=== PATIENT | female | born 1955 | race African-American/Black ===

== ENCOUNTER 2020-05-24 10:35 | Inpatient (IN) | payer MEDICARE, MEDICAID ==
[~2020-05-24] VITALS: Ht 162.6 cm; Wt 107.5 kg
[~2020-05-24 10:35] MED LIST: UNK MEDS
[2020-05-24 12:17] LABS: BASOPHILS % 1.3 % (0.0-2.0); EOSINOPHILS % 0.8 % (0.0-5.0); HEMATOCRIT. 44.9 % (36.0-48.0); HEMOGLOBIN. 14.1 g/dL (12.0-16.0); LYMPHOCYTES % 16.2 % (20.0-50.0); MEAN CORPUSCULAR HEMOGLOBIN 25.4 pg (28.0-32.0); MEAN CORPUSCULAR VOLUME 81.1 fL (81.0-99.0); MEAN PLATELET VOLUME 9.1 fl (7.4-10.4); MONOCYTES % 9.3 % (2.0-8.0); NEUTROPHILS % 72.4 % (40.0-76.0); PLATELET 239 x1000/uL (130-400); RED BLOOD CELL COUNT 5.54 mill/uL (4.2-5.4); RED CELL DISTRIBUTION WIDTH 15.8 % (11.6-14.6)
[2020-05-24 12:32] LABS: CHLORIDE 104 mEq/L (98-107)
[2020-05-24] MEDS ORDERED: GLUCAGON,HUMAN RECOMBINANT 1MG/VIAL IV ONE (13:15)
[2020-05-24 16:15] VITALS: BP 124/90
[2020-05-24 17:05] VITALS: BP 124/90
[2020-05-24] MEDS ORDERED: FLUT1BLS12 IH (17:17)
[2020-05-24] MEDS ORDERED: ERTU15TA PO (17:17)
[2020-05-24] MEDS ORDERED: METF-874 PO (17:22)
[2020-05-24] MEDS ORDERED: AMLO-78 MT (17:22)
[2020-05-24] MEDS ORDERED: TRIA1TAB92 MT (17:22)
[2020-05-24] MEDS ORDERED: IPRA4AER INH (17:22)
[2020-05-24] MEDS ORDERED: ALOG25TA MT (17:22)
[2020-05-24] MEDS ORDERED: ATOR40TA70 PO (17:22)
[2020-05-24] MEDS ORDERED: ASPI-1160 PO (17:22)
[2020-05-24] MEDS ORDERED: CALC-889 PO (17:22)
[2020-05-24] MEDS ORDERED: NAPR500T7 PO (17:22)
[2020-05-24] MEDS ORDERED: ERGO500013 PO (17:22)
[2020-05-24] MEDS ORDERED: MULT-1146 MT (17:22)
[2020-05-24] MEDS ORDERED: OMEP40CA12 PO (17:22)
[2020-05-24] MEDS ORDERED: DEXTROSE 50% WATER 50ML SYRINGE IV PRN (17:45)
[2020-05-24] MEDS ORDERED: *PATIENT'S OWN MEDICATION STORAGE XX SCH (17:45)
[2020-05-24] MEDS ORDERED: ACETAMINOPHEN 325MG TABLET PO PRN (17:45)
[2020-05-24 18:04] LABS: CLARITY URINE CLEAR (CLEAR); COLOR URINE YELLOW (YELLOW); KETONES URINE TRACE (NEGATIVE); LEUKOCYTE ESTERASE URINE NEGATIVE (NEGATIVE); NITRITE URINE NEGATIVE (NEGATIVE); OCCULT BLOOD URINE NEGATIVE (NEGATIVE); PROTEIN URINE NEGATIVE (NEGATIVE); SPECIFIC GRAVITY URINE 1.026 (1.005-1.030); UROBILINOGEN URINE 0.2 E.U./dL (0.2-1.0)
[2020-05-24] MEDS ORDERED: HYDROCODONE/ACETAMINOPHEN 5/325MG TABLET PO PRN (18:15)
[2020-05-24 18:20] LABS: *AMPHETAMINES SCREEN URINE NEGATIVE (NEGATIVE); *BARBITURATES SCREEN URINE NEGATIVE (NEGATIVE); *BENZODIAZEPINES SCREEN URINE NEGATIVE (NEGATIVE); *COCAINE SCREEN URINE NEGATIVE (NEGATIVE); METHADONE URINE SCREEN NEGATIVE (NEGATIVE); OPIATES URINE SCREEN NEGATIVE (NEGATIVE)
[2020-05-24 18:21] LABS: CANNABINOID URINE SCREEN NEGATIVE (NEGATIVE); PHENCYCLIDINE URINE SCREEN NEGATIVE (NEGATIVE)
[2020-05-24] MEDS: ACYCLOVIR 400 MG TABLET PO SCH (18:40)
[2020-05-24] MEDS: TRAMADOL 50MG TABLET PO PRN (18:40)
[2020-05-24 20:00] VITALS: BP 159/78
[2020-05-24] MEDS: BLOOD SUGAR DIAGNOSTIC STRIP TEST SCH (20:52)
[2020-05-24] MEDS: FAMOTIDINE 20MG TABLET PO SCH (20:52)
[2020-05-24] MEDS: INSULIN LISPRO 100 UNITS/ML SUBCUT SCH (20:54)
[2020-05-24] MEDS ORDERED: INSULIN LISPRO 100 UNITS/ML SUBCUT SCH (21:00)
[2020-05-24 21:20] LABS: LDL CHOLESTEROL 89 mg/dL (5-100)
[2020-05-24 21:21] LABS: HDL CHOLESTEROL 47 mg/dL (40-59)
[2020-05-24] MEDS: ADVAIR PO SCH (23:30)
[2020-05-25] MEDS: TRAMADOL 50MG TABLET PO PRN ×2 (02:05→16:10)
[2020-05-25] MEDS: BLOOD SUGAR DIAGNOSTIC STRIP TEST SCH ×4 (05:51→21:08)
[2020-05-25] MEDS: INSULIN LISPRO 100 UNITS/ML SUBCUT SCH ×4 (05:51→21:18)
[2020-05-25] MEDS: METFORMIN HCL 500MG TABLET PO SCH ×2 (05:52→18:01)
[2020-05-25 08:00] VITALS: BP 157/79
[2020-05-25] MEDS: ADVAIR PO SCH ×2 (10:26→18:01)
[2020-05-25] MEDS: ACYCLOVIR 400 MG TABLET PO SCH ×3 (10:27→18:01)
[2020-05-25 12:00] VITALS: BP 148/72
[2020-05-25] MEDS ORDERED: LACTULOSE 20G/30ML UDC PO NR (12:45)
[2020-05-25] MEDS: ONDANSETRON HCL 4MG/2ML INJ IV PRN (14:11)
[2020-05-25 16:00] VITALS: BP 122/60
[2020-05-25] MEDS ORDERED: INSULIN GLARGINE UD 100 UNITS/ML SYR SUBCUT NR (16:15)
[2020-05-25] MEDS ORDERED: INSULIN GLARGINE UD 100 UNITS/ML SYR SUBCUT ONE (17:00)
[2020-05-25] MEDS: COMBIVENT RESPIMAT PO PRN (18:06)
[2020-05-25 20:00] VITALS: BP 142/86
[2020-05-25] MEDS: INSULIN GLARGINE UD 100 UNITS/ML SYR SUBCUT SCH (21:18)
[2020-05-25] MEDS: FAMOTIDINE 20MG TABLET PO SCH (21:20)
[2020-05-25] MEDS: ACYCLOVIR INJ 750 MG in DEXT 5% WATER 125 ML IV SCH (23:09)
[2020-05-26] VITALS: BP 138/73
[2020-05-26 04:00] VITALS: BP 107/60
[2020-05-26] MEDS: ONDANSETRON HCL 4MG/2ML INJ IV PRN (05:54)
[2020-05-26] MEDS: TRAMADOL 50MG TABLET PO PRN ×2 (05:54→20:42)
[2020-05-26] MEDS: ACYCLOVIR INJ 750 MG in DEXT 5% WATER 125 ML IV SCH ×3 (06:05→23:27)
[2020-05-26] MEDS: METFORMIN HCL 500MG TABLET PO SCH ×2 (06:17→17:02)
[2020-05-26] MEDS: INSULIN LISPRO 100 UNITS/ML SUBCUT SCH ×4 (06:19→20:20)
[2020-05-26] MEDS: BLOOD SUGAR DIAGNOSTIC STRIP TEST SCH ×4 (06:49→20:20)
[2020-05-26 08:00] VITALS: BP 135/79
[2020-05-26] MEDS ORDERED: [UNRECOGNIZED DRUG - OTHER] MT SCH (09:00)
[2020-05-26] MEDS ORDERED: DOCUSATE SODIUM 250MG CAPSULE PO SCH ×2 (09:00)
[2020-05-26] MEDS ORDERED: AMLODIPINE BESYLATE MT SCH (09:00)
[2020-05-26] MEDS ORDERED: BENAZEPRIL MT SCH (09:00)
[2020-05-26] MEDS: DOCUSATE SODIUM 250MG CAPSULE PO SCH ×2 (09:11→17:00)
[2020-05-26] MEDS: TRIAMTERENE/HYDROCHLOROTHIAZID 75/50MG TABLET PO SCH (09:12)
[2020-05-26] MEDS: BENAZEPRIL 10MG TABLET PO SCH (09:12)
[2020-05-26] MEDS: AMLODIPINE 5MG TABLET PO SCH (09:12)
[2020-05-26] MEDS: ADVAIR PO SCH ×2 (09:27→17:03)
[2020-05-26] MEDS: INSULIN GLARGINE UD 100 UNITS/ML SYR SUBCUT SCH ×2 (10:13→21:19)
[2020-05-26 12:00] VITALS: BP 128/79
[2020-05-26] MEDS: METOCLOPRAMIDE HCL 10MG/2ML VIAL IV SCH ×3 (12:00→23:26)
[2020-05-26] MEDS ORDERED: FUROSEMIDE 40MG/4ML VIAL IVP SCH (12:00)
[2020-05-26 16:00] VITALS: BP 148/71
[2020-05-26] MEDS: COMBIVENT RESPIMAT PO PRN (17:03)
[2020-05-26 20:00] VITALS: BP 103/45
[2020-05-26] MEDS ORDERED: LACTULOSE 20G/30ML UDC PO SCH (20:00)
[2020-05-26] MEDS: FAMOTIDINE 20MG TABLET PO SCH (20:17)
[2020-05-27] VITALS: BP 120/72
[2020-05-27 04:00] VITALS: BP 126/68
[2020-05-27 05:09] LABS: HIV SCREEN 4G Non Reactive (Non Reactive)
[2020-05-27] MEDS: METOCLOPRAMIDE HCL 10MG/2ML VIAL IV SCH ×2 (06:18→12:00)
[2020-05-27] MEDS: METFORMIN HCL 500MG TABLET PO SCH (06:18)
[2020-05-27] MEDS: ACYCLOVIR INJ 750 MG in DEXT 5% WATER 125 ML IV SCH (06:18)
[2020-05-27] MEDS: BLOOD SUGAR DIAGNOSTIC STRIP TEST SCH ×2 (06:39→11:45)
[2020-05-27] MEDS: INSULIN LISPRO 100 UNITS/ML SUBCUT SCH ×2 (06:46→12:15)
[2020-05-27 07:03] LABS: BASOPHILS % 1.2 % (0.0-2.0); EOSINOPHILS % 0.6 % (0.0-5.0); HEMATOCRIT. 40.8 % (36.0-48.0); HEMOGLOBIN. 13.1 g/dL (12.0-16.0); LYMPHOCYTES % 28.3 % (20.0-50.0); MEAN CORPUSCULAR VOLUME 81.1 fL (81.0-99.0); MEAN PLATELET VOLUME 9.3 fl (7.4-10.4); MONOCYTES % 9.2 % (2.0-8.0); NEUTROPHILS % 60.7 % (40.0-76.0); PLATELET 231 x1000/uL (130-400); RED BLOOD CELL COUNT 5.04 mill/uL (4.2-5.4); RED CELL DISTRIBUTION WIDTH 15.5 % (11.6-14.6)
[2020-05-27 08:00] VITALS: BP 160/80
[2020-05-27] MEDS: ADVAIR PO SCH (09:00)
[2020-05-27] MEDS: DOCUSATE SODIUM 250MG CAPSULE PO SCH (09:00)
[2020-05-27] MEDS: AMLODIPINE 5MG TABLET PO SCH (09:39)
[2020-05-27] MEDS: TRIAMTERENE/HYDROCHLOROTHIAZID 75/50MG TABLET PO SCH (09:39)
[2020-05-27] MEDS: BENAZEPRIL 10MG TABLET PO SCH (09:39)
[2020-05-27] MEDS: INSULIN GLARGINE UD 100 UNITS/ML SYR SUBCUT SCH (10:00)
[2020-05-27 11:37] VITALS: BP 132/80
[2020-05-27 12:00] VITALS: BP 122/61
== END 2020-05-27 14:00 | disposition home or self-care (01) | DRG 383 ==
LOC: ER 10:35 → 5WST 14:36 → EDBEDREQ 14:38 → ENRESERV 15:16
PROVIDERS: ADMIT Internal Medicine; ATTEND Internal Medicine
DX: B02.9 Zoster without complications (principal); I10 Essential (primary) hypertension; I27.20 Pulmonary hypertension, unspecified; E11.65 Type 2 diabetes mellitus with hyperglycemia; J44.9 Chronic obstructive pulmonary disease, unspecified; E66.01 Morbid (severe) obesity due to excess calories; M19.90 Unspecified osteoarthritis, unspecified site; Z68.41 Body mass index [BMI] 40.0-44.9, adult; Z87.891 Personal history of nicotine dependence; Z83.3 Family history of diabetes mellitus; Z84.89 Family history of other specified conditions; Z71.3 Dietary counseling and surveillance
CPT/HCPCS: 36415; 71045; 80048; 80061; 80305; 81003; 82962; 83880; 84443; 84484; 85025; 87389; 92610; 93005; 93306; 99285; A4565; J0133; J1610; J1815; J1940; J2405; J2765; J7042; J7060